=== PATIENT | male | born 1950 | race Caucasian/White ===

== ENCOUNTER 2017-05-21 09:59 | Inpatient (IN) | payer OTHER ==
[~2017-05-21] VITALS: Ht 177.8 cm; Wt 113.7 kg
[2017-05-21] MEDS ORDERED: SODIUM CHLORIDE 0.9% 1000ML 1,000 ML IV ONE ×2 (10:21→21:06)
[2017-05-21] MEDS ORDERED: ONDANSETRON HCL 4 MG/2 ML VIAL ONE ×2 (10:21→21:06)
[2017-05-21] MEDS ORDERED: MORPHINE SULFATE 8 MG/ML VIAL ONE ×2 (10:22→15:15)
[2017-05-21 10:28] LABS: BASOPHILS % (AUTO) 0.3 % (0.0-5.0); EOSINOPHILS % (AUTO) 0.1 % (0.0-8.0); HEMATOCRIT 43.4 % (42-54); LYMPHOCYTES % (AUTO) 3.7 % (21.0-51.0); MEAN CORPUSCULAR HEMOGLOBIN 31.8 pg (27.0-33.0); MEAN CORPUSCULAR HGB CONC 34.7 g/dL (32.0-36.0); MEAN CORPUSCULAR VOLUME 91.6 fL (79-99); MONOCYTES % (AUTO) 7.3 % (3.0-13.0); NEUTROPHILS % (AUTO) 88.6 % (40.0-77.0); PLATELET COUNT (AUTO) 289 K/uL (130-400); RED BLOOD CELL COUNT(AUTO) 4.73 MIL/uL (4.50-6.20); RED CELL DISTRIBUTION WIDTH 13.1 % (11.0-15.5); WHITE BLOOD COUNT (AUTO) 20.4 K/uL (4.8-10.8)
[2017-05-21 10:36] LABS: POTASSIUM 4.2 mmol/L (3.5-5.1)
[2017-05-21 10:40] LABS: ALBUMIN 3.6 g/dL (3.5-5.0); BILIRUBIN,TOTAL 1.1 mg/dL (0.2-1.0)
[2017-05-21 11:08] LABS: APPEARANCE,URINE Clear (CLEAR); BILIRUBIN,URINE Small (NEGATIVE); COLOR,URINE Dark Yellow (YELLOW); GLUCOSE, URINE (UA) Negative (NEGATIVE); KETONES,URINE Trace mg/dL (NEGATIVE); LEUKOCYTE ESTERASE ,URINE Trace (NEGATIVE); NITRATE,URINE Negative (NEGATIVE); OCCULT BLOOD,URINE Negative (NEGATIVE); PROTEIN,URINE Trace (NEGATIVE)
[2017-05-21 11:21] LABS: BACTERIA,URINE Rare /HPF (None Seen); MUCUS,URINE Moderate LPF (None Seen); RBC,URINE 0-1 /HPF (0-1); SQUAMOUS EPITHELIAL CELL,UR Rare /LPF (0-2); WBC,URINE 0-1 /HPF (0-1)
[2017-05-21] MEDS ORDERED: IOPAMIDOL-370 75 ML VIAL IV ONE (11:26)
[2017-05-21] MEDS ORDERED: MEROPENEM 1 GM VIAL ONE (13:08)
[2017-05-21] MEDS: LEVOFLOXACIN 500 MG/D5W 100 ML 100 ML IV SCH (13:30)
[2017-05-21] MEDS ORDERED: HYDRALAZINE HCL 20 MG/ML VIAL IV PRN (13:45)
[2017-05-21] MEDS ORDERED: LEVOFLOXACIN 500 MG/D5W 100 ML 100 ML ONE (14:22)
[2017-05-21] MEDS ORDERED: METRONIDAZOLE 500MG/100ML BAG 100 ML ONE ×2 (15:09→22:16)
[2017-05-21] MEDS ORDERED: ONDANSETRON HCL 4 MG/2 ML VIAL IVP PRN (19:00)
[2017-05-21] MEDS ORDERED: ACETAMINOPHEN 325 MG TAB PO PRN (19:00)
[2017-05-21] MEDS ORDERED: MORPHINE SULFATE 2 MG/ML 1ML SYG ONE (21:06)
[2017-05-21 22:30] VITALS: BP 113/56
[2017-05-21] MEDS: METRONIDAZOLE 500MG/100ML BAG 100 ML IV SCH (23:25)
[2017-05-21] MEDS: SODIUM CHLORIDE 0.9% 1000ML 1,000 ML IV SCH (23:26)
[2017-05-22] VITALS (7 sets, daily range): BP systolic 111–150; BP diastolic 55–69
[2017-05-22] MEDS ORDERED: CLOP75TA14 PO (01:08)
[2017-05-22] MEDS ORDERED: CAND8TAB4 PO (01:08)
[2017-05-22] MEDS ORDERED: ATOR20TA65 PO (01:08)
[2017-05-22] MEDS ORDERED: AEC81 PO (01:08)
[2017-05-22] MEDS ORDERED: METO25TA6 PO (01:08)
[2017-05-22] MEDS ORDERED: PANT40TA25 PO (01:08)
[2017-05-22 05:01] LABS: BASOPHILS % (AUTO) 0.4 % (0.0-5.0); EOSINOPHILS % (AUTO) 0.1 % (0.0-8.0); HEMATOCRIT 38.2 % (42-54); LYMPHOCYTES % (AUTO) 5.3 % (21.0-51.0); MEAN CORPUSCULAR HGB CONC 34.8 g/dL (32.0-36.0); MONOCYTES % (AUTO) 8.8 % (3.0-13.0); NEUTROPHILS % (AUTO) 85.4 % (40.0-77.0); PLATELET COUNT (AUTO) 236 K/uL (130-400); RED BLOOD CELL COUNT(AUTO) 4.16 MIL/uL (4.50-6.20); RED CELL DISTRIBUTION WIDTH 13.2 % (11.0-15.5); WHITE BLOOD COUNT (AUTO) 20.7 K/uL (4.8-10.8)
[2017-05-22 05:28] LABS: CREATININE 1.1 mg/dL (0.5-1.5); POTASSIUM 4.8 mmol/L (3.5-5.1)
[2017-05-22] MEDS: METRONIDAZOLE 500MG/100ML BAG 100 ML IV SCH ×3 (06:36→22:50)
[2017-05-22] MEDS: SODIUM CHLORIDE 0.9% 1000ML 1,000 ML IV SCH ×2 (06:37→17:58)
[2017-05-22] MEDS: PANTOPRAZOLE SODIUM 40 MG TABLET.DR PO SCH (08:29)
[2017-05-22] MEDS: MORPHINE SULFATE 2 MG/ML 1ML SYG IV PRN (09:32)
[2017-05-22] MEDS: LEVOFLOXACIN 500 MG/D5W 100 ML 100 ML IV SCH (17:57)
[2017-05-22] MEDS: METOPROLOL TARTRATE 25 MG TAB PO SCH (22:50)
[2017-05-23] VITALS (26 sets, daily range): BP systolic 101–139; BP diastolic 48–75
[2017-05-23 05:32] LABS: BASOPHILS % (AUTO) 0.4 % (0.0-5.0); EOSINOPHILS % (AUTO) 0.2 % (0.0-8.0); LYMPHOCYTES % (AUTO) 4.7 % (21.0-51.0); MEAN CORPUSCULAR HEMOGLOBIN 31.3 pg (27.0-33.0); MEAN CORPUSCULAR HGB CONC 33.8 g/dL (32.0-36.0); MEAN CORPUSCULAR VOLUME 92.7 fL (79-99); MONOCYTES % (AUTO) 7.2 % (3.0-13.0); NEUTROPHILS % (AUTO) 87.5 % (40.0-77.0); PLATELET COUNT (AUTO) 278 K/uL (130-400); RED BLOOD CELL COUNT(AUTO) 4.32 MIL/uL (4.50-6.20); RED CELL DISTRIBUTION WIDTH 13.3 % (11.0-15.5); WHITE BLOOD COUNT (AUTO) 22.6 K/uL (4.8-10.8)
[2017-05-23 05:54] LABS: CREATININE 1.1 mg/dL (0.5-1.5); POTASSIUM 3.8 mmol/L (3.5-5.1)
[2017-05-23] MEDS: METRONIDAZOLE 500MG/100ML BAG 100 ML IV SCH ×3 (06:41→22:47)
[2017-05-23] MEDS: PANTOPRAZOLE SODIUM 40 MG TABLET.DR PO SCH (09:00)
[2017-05-23] MEDS ORDERED: ASPIRIN 81 MG EC TAB PO SCH (09:00)
[2017-05-23] MEDS: METOPROLOL TARTRATE 25 MG TAB PO SCH ×2 (10:01→22:47)
[2017-05-23] MEDS: SODIUM CHLORIDE 0.9% 1000ML 1,000 ML IV SCH ×2 (10:02→10:08)
[2017-05-23] MEDS ORDERED: LACTATED RINGERS 1000ML 1,000 ML IV ONE (12:41)
[2017-05-23] MEDS ORDERED: BUPIVACAINE/PF 0.5% 30ML VIAL ONE (12:43)
[2017-05-23] MEDS ORDERED: GLYCOPYRROLATE 0.2 MG/ML 5 ML VIAL ONE (12:51)
[2017-05-23] MEDS ORDERED: ONDANSETRON HCL 4 MG/2 ML VIAL ONE (12:51)
[2017-05-23] MEDS ORDERED: DEXAMETHASONE SOD PHOSPHATE 10MG/ML 1ML VIAL ONE (12:51)
[2017-05-23] MEDS ORDERED: FENTANYL CITRATE PF 50 MCG/1 ML 2ML VIAL ONE (12:51)
[2017-05-23] MEDS ORDERED: LIDOCAINE PF 2% 5ML ABBOJECT ONE (12:51)
[2017-05-23] MEDS ORDERED: MIDAZOLAM HCL 1 MG/ML 2ML VIAL ONE (12:51)
[2017-05-23] MEDS ORDERED: NEOSTIGMINE METHYLSULFATE 1MG/ML IV ONE (12:51)
[2017-05-23] MEDS ORDERED: SUCCINYLCHOLINE 200MG/10ML SYR ONE (12:51)
[2017-05-23] MEDS ORDERED: PROPOFOL 10 MG/ML 20ML VIAL IV ONE ×2 (12:51→14:03)
[2017-05-23] MEDS ORDERED: MEPERIDINE-PF 50 MG/ML SYG ONE (14:54)
[2017-05-23] MEDS: MORPHINE SULFATE 2 MG/ML 1ML SYG IV PRN (16:25)
[2017-05-23] MEDS: LEVOFLOXACIN 500 MG/D5W 100 ML 100 ML IV SCH (16:34)
[2017-05-23] MEDS ORDERED: ACETAMINOPHEN-CODEINE 300/30MG TAB PO PRN (19:30)
[2017-05-24] MEDS: SODIUM CHLORIDE 0.9% 1000ML 1,000 ML IV SCH ×3 (02:34→20:18)
[2017-05-24 03:00] VITALS: BP 101/61
[2017-05-24 05:09] LABS: HEMATOCRIT 34.7 % (42-54); MEAN CORPUSCULAR HEMOGLOBIN 31.6 pg (27.0-33.0); MEAN CORPUSCULAR HGB CONC 34.6 g/dL (32.0-36.0); MEAN CORPUSCULAR VOLUME 91.4 fL (79-99); PLATELET COUNT (AUTO) 244 K/uL (130-400); RED CELL DISTRIBUTION WIDTH 13.3 % (11.0-15.5); WHITE BLOOD COUNT (AUTO) 16.7 K/uL (4.8-10.8)
[2017-05-24 05:26] LABS: ALBUMIN 2.1 g/dL (3.5-5.0); BILIRUBIN,DIRECT 0.1 mg/dL (0.0-0.3); BILIRUBIN,TOTAL 0.6 mg/dL (0.2-1.0); POTASSIUM 4.2 mmol/L (3.5-5.1); TOTAL PROTEIN, SERUM 5.8 g/dL (6.0-8.3)
[2017-05-24 05:38] LABS: BAND NEUTROPHILS % (MANUAL) 2 % (0-2); EOSINOPHILS % (MANUAL) 3 % (1-6); LYMPHOCYTES % (MANUAL) 9 % (22-44); MAN.DIFF COMMENT-IMPRESSION MANUAL DIFFERENTIAL; MONOCYTES % (MANUAL) 4 % (2-9); SEGMENTED NEUTROPHILS % 82 % (40-70)
[2017-05-24 05:39] LABS: PLATELET MORPHOLOGY COMMENT ADEQUATE
[2017-05-24] MEDS: METRONIDAZOLE 500MG/100ML BAG 100 ML IV SCH ×3 (06:59→21:17)
[2017-05-24 07:55] VITALS: BP 106/66
[2017-05-24] MEDS: PANTOPRAZOLE SODIUM 40 MG TABLET.DR PO SCH (08:43)
[2017-05-24] MEDS: METOPROLOL TARTRATE 25 MG TAB PO SCH ×2 (08:43→20:18)
[2017-05-24 11:14] VITALS: BP 120/64
[2017-05-24] MEDS: LEVOFLOXACIN 500 MG/D5W 100 ML 100 ML IV SCH (12:20)
[2017-05-24 15:50] VITALS: BP 120/60
[2017-05-24 19:00] VITALS: BP 129/66
[2017-05-24 23:00] VITALS: BP 130/69
[2017-05-25] MEDS: SODIUM CHLORIDE 0.9% 1000ML 1,000 ML IV SCH (02:08)
[2017-05-25 03:00] VITALS: BP 144/71
[2017-05-25] MEDS: METRONIDAZOLE 500MG/100ML BAG 100 ML IV SCH ×2 (05:00→14:41)
[2017-05-25 07:00] VITALS: BP 123/66
[2017-05-25] MEDS: METOPROLOL TARTRATE 25 MG TAB PO SCH (08:28)
[2017-05-25] MEDS: PANTOPRAZOLE SODIUM 40 MG TABLET.DR PO SCH (08:28)
[2017-05-25] MEDS ORDERED: ASPIRIN 81 MG EC TAB PO SCH (09:00)
[2017-05-25 10:45] LABS: HEMATOCRIT 36.8 % (42-54); MEAN CORPUSCULAR HEMOGLOBIN 31.7 pg (27.0-33.0); MEAN CORPUSCULAR HGB CONC 34.6 g/dL (32.0-36.0); MEAN CORPUSCULAR VOLUME 91.6 fL (79-99); PLATELET COUNT (AUTO) 282 K/uL (130-400); RED BLOOD CELL COUNT(AUTO) 4.02 MIL/uL (4.50-6.20); WHITE BLOOD COUNT (AUTO) 11.3 K/uL (4.8-10.8)
[2017-05-25 11:00] VITALS: BP 130/66
[2017-05-25] MEDS: LEVOFLOXACIN 500 MG/D5W 100 ML 100 ML IV SCH (13:49)
[2017-05-25 16:00] VITALS: BP 135/70
[2017-05-25 19:30] VITALS: BP 136/70
[2017-05-25] MEDS ORDERED: LEVO500T2 PO (19:37)
[2017-05-25] MEDS ORDERED: METR500T PO (19:37)
[2017-05-26] MEDS ORDERED: CLOPIDOGREL BISULFATE 75 MG TAB PO SCH (09:00)
== END 2017-05-25 20:25 | disposition home or self-care (01) | DRG 854 ==
LOC: EDH 09:59 → EDHIP 18:08 → 3DH 21:18
PROVIDERS: ADMIT Family Medicine; ATTEND Family Medicine
PROC: 0FT44ZZ Resection of Gallbladder, Percutaneous Endoscopic Approach (ICD-10-PCS; principal; 2017-05-23 12:56)
DX: A41.9 Sepsis, unspecified organism (principal); K80.00 Calculus of gallbladder with acute cholecystitis without obstruction; K66.8 Other specified disorders of peritoneum; I25.10 Atherosclerotic heart disease of native coronary artery without angina pectoris; E66.9 Obesity, unspecified; E78.5 Hyperlipidemia, unspecified; I45.10 Unspecified right bundle-branch block; I25.2 Old myocardial infarction; Z95.1 Presence of aortocoronary bypass graft; Z68.36 Body mass index [BMI] 36.0-36.9, adult; Z28.21 Immunization not carried out because of patient refusal
CPT/HCPCS: 36415; 74177; 76700; 80048; 80053; 80061; 80076; 81001; 82948; 83690; 85025; 85027; 87040; 88304; 93005; 99291; J0330; J1100; J1956; J2001; J2175; J2185; J2250; J2270; J2405; J2704; J2710; J3010; J3490; J7030; J7120; Q9967